=== PATIENT | female | born 1990 | race Caucasian/White ===

== ENCOUNTER 2016-09-15 10:22 | Day surgery (SDC) | payer BC ==
--- NOTE | 2016-09-09 15:58 | HPF ---
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 HISTORY OF PRESENT ILLNESS Jeannie is a 26-year-old female who was seen for a chief complaint of bilateral exertional compartment syndrome. We had previously seen her for an ACL reconstruction years ago and she has done well. She has seen Dr. Atwood with complaints of pain affecting both legs after activity. It has gotten bad enough that it even affects her after moderate walking distances, and has been ongoing for the last two years. Onset has been gradual. There was no trauma. She describes the pain as aching and throbbing. It is severe when she is walking, running or jumping. Pain does not radiate. She has tried rest as well as activity modification and stretching without improvement. She has had no prior history of injury or surgery in her legs. She complains of weakness with walking. She denies getting any coolness in the extremities or any history of previous vascular issues. She did undergo compartment pressure measurements by Dr. Atwood which showed elevated pressures in the right lateral compartment, right anterior compartment and left lateral compartment. The left anterior compartment was only minimally increased. REVIEW OF SYSTEMS Review of Systems was obtained and reviewed through patient questionnaire completed today. Constitutional: The patient does not have any chills, fever, fatigue, malaise, or weight loss. HEENT: The patient does not have any headache or dizziness. Respiratory: The patient does not have any cough, shortness of air, recent respiratory infection, or wheezing. Cardiovascular: The patient does not have any chest pain, palpitation, leg swelling, or syncope. Gastrointestinal: The patient does not have any abdominal pain, constipation, diarrhea, vomiting, heartburn, or nausea. Skin: The patient does not have any skin infection, rash, or numbness of the extremity. Musculoskeletal: The patient denies other joint pain as well. Neurological: The patient does not have any seizure. Psychiatric: The patient does not have any anxiety or depression. Hematologic/Lymphatic: The patient does not have easy bruising or easy bleeding. PAST MEDICAL HISTORY Positive only for gastroesophageal reflux disease. MEDICATIONS 1. Stool softener. 2. Fluoxetine. 3. Oral contraceptive. 4. Omeprazole. SURGICAL HISTORY Left knee ACL reconstruction 2014. SOCIAL HISTORY She is . She does not smoke. She works. Consumes alcohol on a social basis. Denies illicit drug use. FAMILY HISTORY Negative and noncontributory. PHYSICAL EXAMINATION VITAL SIGNS: Height 6 foot, weight 250 pounds. Blood pressure 145/94. Pulse 88. CONSTITUTIONAL: Well-developed, well-nourished. PSYCHIATRIC: Alert and oriented x3, in no acute distress, normal mood and affect. SKIN: No rash or abnormal lesions in affected extremities. VASCULAR: 2+ palpable distal pulses with brisk capillary refill in all digits. NEUROLOGIC: Normal sensation to light touch in bilateral affected extremities. MUSCULOSKELETAL: Normal gait without antalgia. No assistive device needed. Affected Extremity: Bilateral lower. No swelling, deformity or mass. She has fairly tense compartments anteriorly and laterally in both legs. Posterior compartments are soft. No joint line tenderness. No ankle tenderness. Normal range of motion in all planes of affected joint. Strength is 5/5 in all planes. Good capillary refill to all digits. Normal dorsalis pedis and posterior tibial pulses. ASSESSMENT Bilateral exertional compartment syndrome lower extremities affecting anterior and lateral compartments. PLAN This patient has failed conservative care. We have documented increased compartment pressures. Dr. Guerra has recommended starting on the left side and then perhaps addressing the right side after she has a chance to heal. Recommended surgery is left anterior and lateral compartment fasciotomies. Risks and benefits have been reviewed, including the presence of scars, potential risk to the peroneal nerve including superficial branch, risk of infection, artery damage, potential risk that despite having the fasciotomies, pain may still limit her, medical risks of anesthesia. Risks not limited to the above-mentioned alone. Will plan on proceeding in the near future. TJ
[2016-09-15] VITALS (15 sets, daily range): BP systolic 115–155; BP diastolic 75–92; PULSE 91–128; RESP 16–22; TEMP 97–98.5; O2SAT 93–98; Ht 182.9 cm; Wt 108.7 kg
[~2016-09-15] VITALS: Ht 182.9 cm; Wt 108.7 kg
[~2016-09-15 10:22] MED LIST: CEFAZOLIN 1 GRAM INJECTION IV ONE; FLUO-138 PO; HYDR-4074 PO; LIDOCAINE 1% (10mg/ml) 2ml SDV INJ ONE; LR 1,000 ML IV SCH; OMEP-122 PO; ONDA4TAB4 PO; SENN-125 PO
--- OUTSIDE RECORDS SUMMARY | 2016-09-15 10:26 | XMS REPORT ---
Author Author [facility] Organization [facility] Address [address] [place] [address] Phone [phone] Summary purpose CCDA Sent to [facility] Chief Complaint and Reason for Visit Admit Diagnosis 1 VAGINITIS NOS Problem list No authorized problems tracked for continuity of care are available for this visit. Encounters No authorized problems tracked for encounter diagnoses are available for this visit. Medications No home medications recorded for this patient visit Allergies, adverse reactions, alerts No allergy information is available for this patient. Immunizations No immunizations recorded for this patient visit Relevant diagnostic tests and/or laboratory data No authorized results are available for this patient visit History of procedures Procedure Code Code Type Description Date Performed Performing Physician 35524 CPT-4 PATRICIA, DNA, DIR PROBE 05-02-2014 CLEY ANTONIO 88988 CPT-4 MORALES VAG, DNA, DIR PROBE 05-02-2014 CELY ANTONIO 21261 CPT-4 TRICHOMONAS VAGIN, DIR PROBE 05-02-2014 CELY ANTONIO Functional status No functional or cognitive status observations are available for this visit. Vital signs No authorized vital signs are available for this visit. Social history No Social History or smoking status observations were recorded for this visit. ( Unknown if ever smoked.) Treatment Plan No treatment plan text is available for this visit. Hospital discharge instructions No discharge instruction text is available for this visit.
--- OUTSIDE RECORDS SUMMARY | 2016-09-15 10:26 | XMS REPORT ---
Author Author [facility]. Organization [facility] Address [address] [place] [address] Phone [phone] Summary purpose CCDA Sent to [facility] Chief Complaint and Reason for Visit No authorized Reason for Visit (Admitting Diagnosis) is available for this visit. Problem list No authorized problems tracked for continuity of care are available for this visit. Encounters No authorized problems tracked for encounter diagnoses are available for this visit. Medications No medications recorded for this patient visit Allergies, adverse reactions, alerts No allergy information is available for this patient. Immunizations No immunizations recorded for this patient visit Relevant diagnostic tests and/or laboratory data RESULTS [facility] [id number] Result Normal Range Units TSH 0.96 0.50-6.00 uIU/mL History of procedures Procedure Code Code Type Description Date Performed Performing Physician 24869 CPT-4 ASSAY THYROID STIM HORMONE 07-02-2015 ZENY BETH Functional status No functional or cognitive status [...]
--- OUTSIDE RECORDS SUMMARY | 2016-09-15 10:26 | XMS REPORT | Continuity of Care Document ---
Author Author [facility] Organization [facility] Address Unknown Phone Unavailable Support Name Relationship Address Phone MÓNICA SEYMOUR MD Caregiver [facility] [address] [place], [place] [phone] RICHY HENNESSY Caregiver [facility] [address] [place] [phone] ANUPAM REY Next Of [address] [place] [address] Insurance Providers Payer Name Policy Number Subscriber Name Relationship [facility] [id number] Jeannie Rey 16 Self Advance Directives Directive Response Recorded Date/Time Dr Alejo Resuscitation Status Full Code 09/15/14 2:05pm Resuscitation Documents on File No 09/15/14 1:57pm Problems No known problems or medical conditions. Medications Medication Dose Route Sig Days/Qty Instructions Order Date Discontinued Date Status Fluoxetine HCl 20 Mg PO DAILY 30 Qty 09/07/14 Active Sennosides/Docusate Sodium 1 Tab PO DAILY PRN CONSTIPATION 09/07/14 Active Norgestrel-Ethinyl Estradiol 1 Tab PO DAILY 84 Qty 09/07/14 Active Hydrocodone/Apap 7.5/325 Mg 1-2 Tab PO EVERY 4-6 HOURS 60 Qty 09/18/14 Active Ondansetron HCl 4 Mg PO Every 6 Hours For NAUSEA 10 Qty 09/18/14 Active Social History Social History Problem Response Recorded Date/Time Chewing Tobacco Status No 09/07/2014 2:03pm Hx Substance Use No 09/07/2014 2:03pm Hx Alcohol Use Y WEEKENDS 09/07/2014 2:03pm Has the pt used tobacco in the last 12 months No 09/07/2014 2:03pm Query Response Start Date Stop Date Smoking Status Never smoker Hospital Discharge Instructions No hospital discharge instructions. Plan of Care No plan of care. Functional Status No functional status results. Allergies, Adverse Reactions, Alerts Allergen Type Severity Reaction Status Last Updated Sulfa (Sulfonamide Antibiotics) Allergy Unknown HIVES Active 09/07/14 Immunizations Name Given Type Hx Influenza Vaccination No Historical Hx Pneumococcal Vaccination No Historical Hx Influenza Vaccination No Historical Vital Signs Acute Vital Signs Vital Response Date/Time Temperature (Fahrenheit) 98.0 deg F (96.8 - 99.1) Temperature (Calculated Celsius) 36.02160 degrees C (36.0 - 37.3) Temperature Source Oral Pulse Rate (adult) 100 bpm (60 - 100) Respiratory Rate 24 breaths/min (10 - 20) O2 Sat by Pulse Oximetry 97 % (90 - 100) Oxygen Delivery Method Room Air Blood Pressure 132/70 mm Hg Blood Pressure Source Automatic Cuff Height 6 ft 0 in Weight 216 lb Body Mass Index 29.0 kg/m^2 Results No known relevant diagnostic tests, laboratory data and/or discharge summary. Procedures Procedure Status Date Provider(s) Reconstruction of anterior cruciate ligament completed 09/18/14 MÓNICA SEYMOUR MD
--- OUTSIDE RECORDS SUMMARY | 2016-09-15 10:26 | XMS REPORT | Continuity of Care Document ---
Author Author [facility] Organization [facility] Address Unknown Phone Unavailable Allergies Active Description Code Type Severity Reaction Onset Reported/Identified Relationship to Patient Clinical Status Yes NKDA N/A N/A Medications Problems Date Dx Coded Attending Type Code Diagnosis Diagnosed By 05/02/2014 CELY CARROLL 616.10 VAGINITIS NOS 06/21/2015 CELY CARROLL R30.0 Dysuria 06/21/2015 CELY CARROLL R30.9 Painful micturition, unspecified 07/02/2015 ZENY OTOOLE F41.1 Generalized anxiety disorder Procedures Code [place] [address] LILY, DNA, DIR PROBE JOHANNA JUNIOR, CELY 05/02/2014 30830 MORALES VAG, DNA, DIR PROBE CELY CARROLL 05/02/2014 32227 TRICHOMONAS VAGIN, DIR PROBE JOHANNA JUNIOR, CELY 05/02/2014 53942 METABOLIC PANEL TOTAL CA JOHANNA JUNIOR, CELY 06/21/2015 99296 ASSAY THYROID STIM HORMONE ZENY OTOOLE 07/02/2015 Results Test Result Range AFFIRM Vaginitis Panel - 05/02/14 14:32 Gardnerella POS Negative Trichomonas NEG Negative Lily POS Negative Basic Metabolic Panel - 06/22/15 08:59 Sodium 142 MMOLL 134-145 Potassium 4.1 MMOLL 3.6-5.0 Chloride 103 MMOLL 98-107 CO2 22 MMOLL 22-30 Glucose 94 MG/DL 75-110 BUN 9 MG/DL 9-20 Creatinine .8 MG/DL 0.8-1.7 Calcium 9.8 MG/DL 8.4-10.2 TSH - 07/02/15 14:43 TSH 0.96 UIUML 0.50-6.00 Encounters ACCT No. Visit Date/Time Discharge Status Pt. Type Provider Facility Loc./Unit Complaint [id number] 07/02/2015 13:35:00 07/02/2015 13:35:00 DIS Outpatient ZENY OTOOLE [facility] [id number] 06/22/2015 08:40:00 06/22/2015 08:40:00 DIS Outpatient JOHANNA JUNIOR, [facility] [id number] 05/02/2014 13:07:00 05/02/2014 13:07:00 DIS Outpatient JOHANNA JUNIOR [facility]
--- OUTSIDE RECORDS SUMMARY | 2016-09-15 10:26 | XMS REPORT ---
Author Author [facility]. Organization [facility] Address [address] [place] [address] Phone [phone] Summary purpose CCDA Sent to [facility] Chief Complaint and Reason for Visit No [...] for this patient visit History of procedures No procedures recorded for this patient visit. Functional status No functional or cognitive status [...]
--- OUTSIDE RECORDS SUMMARY | 2016-09-15 10:27 | XMS REPORT ---
Author Author [facility]. Organization [facility] Address [address] [place] [address] Phone [phone] Summary purpose CCDA Sent to [facility] Chief Complaint and Reason for Visit No [...] Relevant diagnostic tests and/or laboratory data RESULTS Chemistry Group [id number] Result Normal Range Units Sodium 142 134-145 mmol/L Potassium 4.1 3.6-5.0 mmol/L Chloride 103 98-107 mmol/L CO2 22 22-30 mmol/L Glucose 94 75-110 mg/dl BUN 9 9-20 mg/dl Creatinine .8 0.8-1.7 mg/dl Calcium 9.8 8.4-10.2 mg/dl History of procedures Procedure Code Code Type Description Date Performed Performing Physician 81992 CPT-4 METABOLIC PANEL TOTAL CA 06-21-2015 CELY ANTONIO Functional status No functional or [...]
--- NOTE | 2016-09-15 12:23 | ANESPREOP ---
Anesthesia Record Date and Time DATE: 09/15/16 TIME: 12:22 Proposed Surgical Procedure LEG ANTERIOR AND LATERAL COMARTMENT FASIOTOMIES-LEFT Allergies: Coded Allergies: Sulfa (Sulfonamide Antibiotics) (Unverified Allergy, Unknown, HIVES, ) Ht/Wt/BMI Height: 6 ' 0.00 " Weight: 108.700 kg BMI: 32.5 kg/m2 Vital Signs Date Time Temp Pulse Resp B/P Pulse Ox O2 Delivery O2 Flow Rate FiO2 09/15/16 10:32 98.5 91 16 140/90 98 Room Air Medications Inpatient Medications Current Medications Medications (Trade) Dose Ordered Sig/Eleuterio Start Time Stop Time Status Last Admin Dose Admin Lactated Ringer's (Lactated Ringers) 1,000 ml @ 50 mls/hr Q20H 09/15/16 07:00 09/15/16 12:04 50 MLS/HR Fluoxetine HCl (Fluoxetine HCl) 20 Mg Capsule, 20 MG PO DAILY, (Reported) Last Taken: on 09/14/16 0900 Hydrocodone/Apap (Carroll 7.5-325 Tablet) 1 Each Tablet, 1-2 TAB PO Q4-6H Last Taken: on Unknown Date & Time Omeprazole (Omeprazole) 20 Mg Tablet.dr , 20 MG PO ACB, (Reported) Take 1 tablet, by mouth, one time a day with breakfast. 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- NO MEDS NEEDED DAILY), Reflux (Well controlled), Denies: Anesthesia Reactions ( NO AIRWAY ISSUES), Arthritis, Cancer, Clotting Problems, Glaucoma, Hepatitis, Hiatal Hernia, Malignant Hyperthermia, Renal Disease, Sleep Apnea Smoking Status: Never smoker Use Chewing Tobacco?: No Substance Use Type: does not use HX of Last Menstrual Period: AUGUST 2016 Past Surgical History Orthopedic Surgeries: Yes - ACL REPLACEMENT-L Abdominal Surgeries: Genitourinary Surgeries: Cardiac Surgeries: Endocrine Surgeries: Reproductive Surgeries: Neurological Surgeries: Ear Surgeries: Nose Surgeries: Throat Surgeries: Other Surgeries: Anesthesia Adverse Reactions: FOUND none Family Hx of Anesthesia Advers: none Hx of Motion Sickness: No Pertinent Findings Test 09/15/16 10:47 Human Chorionic Gonadotropin, Qual Negative (NEGATIVE) Physical Exam Respiratory: Lungs clear Cardiovascular: FOUND Regular rate, rhythm Airway Assessment Mallampati Score: I TMD: 3 Fingerbreadths Neck Extension: Good Overall Assessment: No Airway Concerns ASA: 1 Plan Anesthesia Plan: LMA, GETA Discussion Discussed risks/options/alternatives of anesthesia and questions answered. Patient consents. Nursing pain assessment noted. Present: Spouse Attestation Statement Prior to the delivery of any anesthetic medication, I examined the patient, developed the plan, obtained the patient's consent and discussed the risk and benefits of the procedure with the patient/guardian. DANA SANTANA CRNA Sep 15, 2016 12:23
[2016-09-15] MEDS ORDERED: MIDAZOLAM 2mg/2ml INJECTION ONE (13:31)
[2016-09-15] MEDS ORDERED: FENTANYL 100mcg/2ml INJECTION ONE (13:31)
[2016-09-15] MEDS ORDERED: DEXAMETHASONE 4mg/ml - 1ml INJECTION ONE (13:33)
[2016-09-15] MEDS ORDERED: ONDANSETRON 4mg/2ml INJECTION ONE (13:33)
[2016-09-15] MEDS ORDERED: KETOROLAC 30mg/ml INJECTION ONE (13:33)
[2016-09-15] MEDS ORDERED: LIDOCAINE 1% (10mg/ml) 30ml SDV ONE (13:41)
[2016-09-15] MEDS ORDERED: BUPIVACAINE 0.25% (2.5mg/ml) INJ 30ml SDV ONE (13:41)
[2016-09-15] MEDS ORDERED: PROPOFOL 200mg 20 ML IV ONE (13:52)
[2016-09-15] MEDS ORDERED: HYDROMORPHONE 2mg/ml INJECTION ONE (14:01)
[2016-09-15] MEDS ORDERED: HYDROCODONE/APAP 5 mg/325 mg TABLET PO PRN (15:15)
[2016-09-15] MEDS ORDERED: KETOROLAC 30mg/ml INJECTION IV PRN (15:15)
--- NOTE | 2016-09-15 15:36 | ANESPO ---
Post-Op Note Date 09/15/16 Time: 15:36 Status Pt Participated in Evaluation: Pt participated in person Vital Signs Date Time Temp Pulse Resp B/P Pulse Ox O2 Delivery O2 Flow Rate FiO2 09/15/16 15:30 97.9 102 16 146/82 95 Room Air 09/15/16 14:58 6.00 Respiratory Function: Airway patent, Regular respirations Cardiovascular Function: Regular pulse Mental Status: Alert/oriented Pain Level Intensity: 0 Hydration: Taking po fluids Complications during Recovery None apparent Follow-Up Instructions Instructions Per Surgeon YOAN ARRIOLA I OPERATIONAL RISK ANALYST Sep 15, 2016 15:36
--- NOTE | 2016-09-15 16:14 | NUR ---
STATUS PATIENT ASSISTED TO SITTING POSITION ON SIDE OF BED. STATES SHE FEELS LIGHT HEADED. VITALS OBTAINED. PATIENT APPEARS PALE. ASSISTED TO BED WITH LEFT LEG ELEVATED. WILL CONTINUE TO MONITOR.
--- NOTE | 2016-09-16 09:09 | OPNOTEF ---
DATE OF PROCEDURE 09/15/2016 PREOPERATIVE DIAGNOSIS Left leg chronic exertional compartment syndrome affecting the anterior and lateral compartments. POSTOPERATIVE DIAGNOSIS Left leg chronic exertional compartment syndrome affecting the anterior and lateral compartments. PROCEDURE Left anterior and lateral leg compartment fasciotomies. SURGEON Alvin Guerra MD BECK OPERATOR Noe Chacon PA-C ANESTHESIA General/ LMA FLUIDS Please refer to Anesthesia chart. EBL Minimal. TOURNIQUET Please refer to Anesthesia chart. COMPLICATIONS None. CONDITION Stable to Recovery Room. DESCRIPTION OF PROCEDURE The patient was identified in the preoperative holding area. The operative extremity was identified and appropriately marked. Risks, benefits, alternatives and potential complications were discussed and informed consent was obtained. The patient was taken to the operating theatre, placed supine on the operating table. Appropriate cardiorespiratory monitors were applied. General anesthesia was administered. A tourniquet was applied high on the left thigh though not yet inflated. The left lower extremity was then sterilely prepped and draped in the usual sterile fashion. Surgical time-out was performed, confirmed with myself, the meeting/event planner and circulating nurse. Preoperative antibiotics were given. The leg was exsanguinated with an Esmarch and the tourniquet inflated. A bump had been placed underneath the left buttock to elevate and internally rotate the left leg. Surgical landmarks were delineated on the skin with a surgical marking pen including the tibial crest, Gerdy's tubercle, the fibular head and neck and the lateral malleolus. A 15 cm incision was then created beginning approximately 8 cm distal to the tip of the fibular head, centered between the tibial crest and the fibular shaft. This was centered approximately in the midportion of the leg. Electrocautery was used for hemostasis as necessary. Blunt dissection then continued through the subcutaneous fat. Full-thickness subcutaneous flaps were then elevated anteriorly and posteriorly. The intermuscular septum was then identified. A transverse incision was created just at the level of the septum. The septum was confirmed by palpating both anteriorly and posteriorly utilizing a hemostat. Once confirmed, retractors were placed including an Army-Peerless proximally. A Metzenbaum scissors were then used to first undermine the fascia the fascia from the underlying muscle. Close visual inspection confirmed no evidence of neurovascular structures in the path as the tips of the Metzenbaums were slid subcutaneously up to the level of Gerdy's tubercle releasing the proximal aspect of the anterior compartment. This was then repeated posterior to the septum for release of the lateral compartment up towards the fibular head. We then continued with the released distally. Again, retractors were placed. The tips of the Metzenbaums were first used to release the anterior compartment while visualizing distally down to the level of the extensor retinaculum of the ankle. This was then repeated posteriorly down to the level just above the distal syndesmosis. Palpation revealed complete release both proximally and distally. Superficial peroneal nerve was not readily identified within any portion of the incision. The wound was then copiously irrigated. A standard layered skin closure was performed. Sterile dressings were applied followed by an Jaciel bandage. The tourniquet was deflated. The patient was awakened from anesthesia and taken to the recovery room in stable and satisfactory condition. TJ
== END 2016-09-15 16:45 | disposition home or self-care (01) ==
LOC: NSC 10:22
PROVIDERS: ATTEND Orthopaedic Surgery
DX: M79.A22 Nontraumatic compartment syndrome of left lower extremity (principal); K21.9 Gastro-esophageal reflux disease without esophagitis; Z79.899 Other long term (current) drug therapy; Z79.3 Long term (current) use of hormonal contraceptives
CPT/HCPCS: 27600; 36415; 84703; J1100; J1170; J1885; J2250; J2405; J2704; J3010; J7120; S0020